=== PATIENT | female | born 1995 | race Caucasian/White ===

== ENCOUNTER 2023-05-10 20:08 | Observation (INO) ==
[2023-05-10] MEDS ORDERED: IOPAMIDOL 100 ML BOTTLE IV ONE (20:09)
[2023-05-10] MEDS ORDERED: fentaNYL 100 MCG/2 ML VIAL IV ONE (20:39)
[2023-05-10] MEDS ORDERED: ONDANSETRON 4 MG/2 ML VIAL IV ONE (20:39)
[2023-05-10 22:09] LABS: Basophils # (Auto) 0.07 K/mcL (0.00-0.30); Basophils % (Auto) 0.4 % (0.0-2.0); Eosinophils % (Auto) 1.1 % (0.0-7.0); Hematocrit 37.4 % (34.1-44.9); Hemoglobin 12.6 g/dL (11.2-15.7); Lymphocytes # (Auto) 3.61 K/mcL (1.50-4.80); Lymphocytes % (Auto) 19.1 % (15.5-49.0); Mean Cell Volume 89.3 fL (80.0-100.0); Mean Corpuscular HGB Conc 33.7 g/dL (31.0-36.0); Mean Platelet Volume 10.7 fL (8.8-12.5); Monocytes # (Auto) 1.13 K/mcL (0.10-0.90); Neutrophils % (Auto) 72.8 % (38.0-78.0); Platelet Count 347 K/mcL (140-440); RBC 4.19 M/mcL (3.59-5.38); Red Cell Distribution Width 11.8 % (11.5-14.5); WBC 18.9 K/mcL (4.5-11.0)
[2023-05-10] MEDS ORDERED: morphine 4 MG/ML VIAL IV ONE (22:13)
[2023-05-10 22:14] LABS: ALT/SGPT 59 U/L (<40); AST/SGOT 36 U/L (<32); Albumin 3.9 gm/dL (3.2-5.2); Albumin/Globulin Ratio 1.4 (1.0-2.3); Alkaline Phosphatase 117 U/L (39-117); Bilirubin,Total 0.4 mg/dL (0.1-1.0); Blood Urea Nitrogen 11 mg/dL (6-20); Calcium 9.1 mg/dL (8.6-10.4); Carbon Dioxide 22 mmol/L (22-30); Chloride 101 mmol/L (96-108); Globulin 2.7 gm/dL (2.2-3.7); Glomerular Filtration Rate 99; Glucose 80 mg/dL (70-105)
[2023-05-10] MEDS ORDERED: FAMOTIDINE/PF 20 MG/2 ML VIAL IV ONE (22:45)
[2023-05-10] MEDS ORDERED: PIPERACILLIN SODIUM/TAZOBACTAM 4.5 GM in DEXTROSE 5% IN WATER 50 ML IV ONE (22:48)
[2023-05-10 23:29] LABS: Partial Thromboplastin Time 28.6 sec (20.0-37.0); Prothrombin Time 13.2 sec (11.9-14.5)
[2023-05-11] MEDS ORDERED: morphine 4 MG/ML VIAL IV ONE (00:10)
[2023-05-11] MEDS: DEXTROSE 5%-1/2NS 1,000 ML IV SCH ×2 (00:36→13:23)
[2023-05-11] MEDS: morphine 4 MG/ML VIAL IV PRN ×5 (04:28→21:42)
[2023-05-11] MEDS ORDERED: PIPERACILLIN SODIUM/TAZOBACTAM 4.5 GM in DEXTROSE 5% IN WATER 50 ML IV SCH (05:00)
[2023-05-11] MEDS ORDERED: DEXAMETHASONE 10 MG/ML VIAL ONE (06:00)
[2023-05-11] MEDS: PIPERACILLIN SODIUM/TAZOBACTAM 3.375 GM in DEXTROSE 5% IN WATER 100 ML IV SCH ×2 (09:16→17:47)
[2023-05-11] MEDS ORDERED: PROPOFOL 200 MG/20 ML VIAL IV ONE (14:16)
[2023-05-11] MEDS ORDERED: fentaNYL 100 MCG/2 ML VIAL IV ONE (14:16)
[2023-05-11] MEDS ORDERED: ROCURONIUM 10 MG/ML ML IV ONE (14:17)
[2023-05-11] MEDS ORDERED: MAGNESIUM SULFATE 2 GM/50 ML BAG IV ONE (15:16)
[2023-05-11] MEDS ORDERED: LIDOCAINE 2% PF 5 ML VIAL ONE (15:17)
[2023-05-11] MEDS ORDERED: HYDROmorphone 1 MG/ML SYRINGE ONE (15:35)
[2023-05-11] MEDS ORDERED: ONDANSETRON 4 MG/2 ML VIAL ONE (16:27)
[2023-05-11] MEDS ORDERED: SUGAMMADEX SODIUM 200 MG/2 ML VIAL IV ONE (16:27)
[2023-05-11] MEDS ORDERED: NALOXONE HCL 0.4 MG/ML VIAL IV PRN (16:31)
[2023-05-11] MEDS ORDERED: PROMETHAZINE 25 MG/ML VIAL IV PRN (16:31)
[2023-05-11] MEDS ORDERED: fentaNYL 100 MCG/2 ML VIAL IV PRN (16:31)
[2023-05-11] MEDS ORDERED: ACETAMINOPHEN 1,000 MG/100 ML BAG IV ONE (16:31)
[2023-05-11] MEDS ORDERED: MEPERIDINE 25 MG/ML VIAL IV PRN (16:31)
[2023-05-11] MEDS ORDERED: KETOROLAC 30 MG/ML VIAL IV PRN (16:31)
[2023-05-11] MEDS ORDERED: IPRATROPIUM/ALBUTEROL 3 ML AMPUL.NEB NEB PRN (16:31)
[2023-05-11] MEDS ORDERED: ONDANSETRON 4 MG/2 ML VIAL IV PRN ×2 (16:31)
[2023-05-11] MEDS ORDERED: LACTATED RINGERS 250 ML IV PRN (16:31)
[2023-05-11] MEDS ORDERED: METHOCARBAMOL 1,000 MG/10 ML VIAL IV PRN (16:31)
[2023-05-11] MEDS ORDERED: LACTATED RINGERS 1,000 ML IV SCH (16:45)
[2023-05-11] MEDS ORDERED: DROSPIRENONE ETHINYL ESTRADIOL PO SCH (17:00)
[2023-05-11] MEDS ORDERED: ALPRAZolam 0.5 MG TABLET PO PRN (17:43)
[2023-05-11] MEDS ORDERED: METHOCARBAMOL 500 MG TABLET PO PRN (17:43)
[2023-05-11] MEDS: LACTATED RINGERS 1,000 ML IV SCH (17:51)
[2023-05-11] MEDS ORDERED: DOXEPIN 25 MG CAPSULE PO SCH (21:00)
[2023-05-11] MEDS ORDERED: lamoTRIgine 25 MG TABLET PO SCH (21:00)
[2023-05-11] MEDS ORDERED: GABAPENTIN 300 MG CAPSULE PO SCH (21:00)
[2023-05-11] MEDS ORDERED: QUEtiapine 100 MG TABLET PO SCH (21:00)
[2023-05-11] MEDS: busPIRone 15 MG TABLET PO SCH (21:16)
[2023-05-11] MEDS: ACETAMINOPHEN 1,000 MG/100 ML BAG IV SCH (23:10)
[2023-05-12] MEDS: LACTATED RINGERS 1,000 ML IV SCH ×2 (00:24→08:26)
[2023-05-12] MEDS: PIPERACILLIN SODIUM/TAZOBACTAM 3.375 GM in DEXTROSE 5% IN WATER 100 ML IV SCH ×2 (00:48→08:26)
[2023-05-12] MEDS: morphine 4 MG/ML VIAL IV PRN ×2 (04:59→10:35)
[2023-05-12] MEDS: ACETAMINOPHEN 1,000 MG/100 ML BAG IV SCH ×2 (04:59→11:50)
[2023-05-12 06:20] LABS: Basophils # (Auto) 0.03 K/mcL (0.00-0.30); Basophils % (Auto) 0.3 % (0.0-2.0); Eosinophils % (Auto) 1.1 % (0.0-7.0); Hematocrit 37.2 % (34.1-44.9); Lymphocytes # (Auto) 2.31 K/mcL (1.50-4.80); Lymphocytes % (Auto) 25.1 % (15.5-49.0); Mean Corpuscular HGB Conc 32.3 g/dL (31.0-36.0); Mean Platelet Volume 10.9 fL (8.8-12.5); Monocytes # (Auto) 0.82 K/mcL (0.10-0.90); Monocytes % (Auto) 8.9 % (1.0-12.0); Neutrophils % (Auto) 64.1 % (38.0-78.0); Platelet Count 308 K/mcL (140-440); RBC 4.09 M/mcL (3.59-5.38); Red Cell Distribution Width 11.7 % (11.5-14.5); WBC 9.2 K/mcL (4.5-11.0)
[2023-05-12 06:37] LABS: ALT/SGPT 127 U/L (<40); AST/SGOT 91 U/L (<32); Albumin 3.4 gm/dL (3.2-5.2); Albumin/Globulin Ratio 1.1 (1.0-2.3); Alkaline Phosphatase 146 U/L (39-117); Bilirubin,Direct 0.5 mg/dL (<0.3); Blood Urea Nitrogen 5 mg/dL (6-20); Calcium 8.9 mg/dL (8.6-10.4); Carbon Dioxide 25 mmol/L (22-30); Chloride 103 mmol/L (96-108); Glomerular Filtration Rate 99; Glucose 86 mg/dL (70-105); Lactate Dehydrogenase 193 U/L (135-225); Phosphorous 3.5 mg/dL (2.5-4.5); Triglycerides 94 mg/dL (<150); Uric Acid 3.1 mg/dL (2.5-8.0)
[2023-05-12 07:49] VITALS: TEMP 98.4
[2023-05-12] MEDS: busPIRone 15 MG TABLET PO SCH (08:26)
[2023-05-12 11:31] VITALS: O2SAT 98
[2023-05-12] MEDS ORDERED: ACETAMINOPHEN 1,000 MG/100 ML BAG IV PRN (12:00)
[2023-05-12] MEDS ORDERED: Mirabegron [Myrbetriq] 50 mg tablet extended release PO SCH (17:00)
== END 2023-05-12 13:39 | disposition home or self-care (01) ==
LOC: MEDSUR 20:08 → ED 20:08 → MEDSUR 05-11 00:58
PROVIDERS: ADMIT Family Medicine Adult Medicine; ATTEND Family Medicine Adult Medicine